=== PATIENT | female | born 1970 | race Caucasian/White ===

== ENCOUNTER 2023-02-10 07:06 | Outpatient (CLI) | payer BC, SELFPAY ==
--- NOTE | 2023-02-10 07:15 | CRLHL7_ITS ---
For Patients: As a result of the Century Cures Act, medical imaging exams and procedure reports are released immediately into your electronic medical record. You may view this report before your referring provider. If you have questions, please contact your health care provider. CLINICAL HISTORY: Pelvic pain TECHNIQUE: 2D hickman scale ultrasound. In addition color Doppler and spectral Doppler analysis was performed of the pelvis using a transabdominal and transvaginal approach. FINDINGS: Fundal uterine fibroid is present measuring 3.4 x 3.2 x 3.1 cm. Additional posterior fundal fibroid noted measuring 2.4 x 2.1 x 2.6 cm. The uterus measures 10.2 x 4.8 x 6.5 cm. The endometrial lining measures 6 mm in thickness. Normal position of the IUD. The right ovary measures 2.7 x 1.3 x 2.1 cm in size and the left ovary is not visualized. The right ovary demonstrates normal arterial and venous blood flow on color Doppler and spectral Doppler analysis. There are no suspicious fluid collections within the cul-de-sac. IMPRESSION: Normal right ovary. No torsion. Left ovary not visualized. No adnexal mass or excess pelvic free fluid. Uterine fibroids measuring 2.6 cm and 3.4 cm. IUD is present within the endometrial canal in good position. Dictated by Sudhakar Gutierrez MD @ 02/10/2023 8:51:27 AM (Electronically Signed)
== END 2023-02-10 07:07 | disposition home or self-care (01) ==
PROVIDERS: PCP Family Medicine; Visit Provider Obstetrics & Gynecology
DX: R10.2 Pelvic and perineal pain (principal); D25.9 Leiomyoma of uterus, unspecified
CPT/HCPCS: 76830; 76856; 93976